=== PATIENT | female | born 1985 | race African-American/Black ===

== ENCOUNTER 2017-06-27 02:13 | Inpatient (IN) | payer SELFPAY ==
[2017-06-27] MEDS ORDERED: Sodium Chloride 0.9% 10 ML Syringe FLUSH PRN (02:52)
[2017-06-27] MEDS ORDERED: Oxytocin 10 Units/1 ML SDV ONE (02:55)
[2017-06-27] MEDS ORDERED: Lactated Ringers 1,000 ML IV SCH (03:00)
[2017-06-27] MEDS ORDERED: Oxytocin/Lactated Ringers 10 UNIT/1,000 ML BAG IV SCH (03:15)
[2017-06-27] MEDS ORDERED: Lidocaine 1% 50 ML MDV ONE (03:24)
--- NOTE | 2017-06-27 04:05 | PCM.LDHP ---
L&D History of Present Illness - General Date of Service: 06/27/17 Admit Problem/Dx: Patient Status Order with Admit Dx/Problem 06/27/17 02:59 Admission Status [Patient Status] [ADT] Routine Admission Diagnosis/Problem Admission Diagnosis/Problem Source of Information: Patient, Family History Limitations: Reports: No Limitations - History of Present Illness Introduction:: 32 yo with EDC of 07/04/17, now 39 weeks gestation presented to the hospital in labor. Her contractions had started at 9 pm on 06/26/17 and she presented to the hospital at 0225 and her membranes ruptured on arrival with clear fluid. She was having strong contractions and was 3 cm dilated on admission. She is blood type O positive, normal labs and normal 1 hour glucola. Her GBS test was negative. - Related Data Allergies/Adverse Reactions: Allergies Allergy/AdvReac Type Severity Reaction Status Date / Time No Known Allergies Allergy Verified 06/27/17 02:55 Social & Family History - Tobacco Use Smoking Status *Q: Never Smoker Tobacco Use Within Last Twelve Months: No - Tobacco Core Measures Tobacco Use/Smoking Within Last 30 Days: No - Alcohol Use Alcohol Use History: No - Recreational Drug Use Recreational Drug Use: No - Living Situation & Occupation Living situation: Reports: Occupation: Other Social History Comment: Stay at home Mom. H&P Review of Systems - Review of Systems: Review Of Systems: ROS reveals no pertinent complaints other than HPI. General: Reports: No Symptoms HEENT: Reports: No Symptoms Pulmonary: Reports: No Symptoms Cardiovascular: Reports: No Symptoms Gastrointestinal: Reports: No Symptoms Genitourinary: Reports: No Symptoms Musculoskeletal: Reports: No Symptoms Skin: Reports: No Symptoms Psychiatric: Reports: No Symptoms Neurological: Reports: No Symptoms Hematologic/Lymphatic: Reports: No Symptoms Immunologic: Reports: No Symptoms L&D Exam - Exam Exam: See Below - Vital Signs Weight: 86.183 kg - OB Specific Contraction Duration (sec): 80-90 secs Contraction Frequency (min): 2 to 3 Contraction Intensity: Moderate to Strong Movement: Active Heart Tones: Present Heart Tones per Min: 130 Heart Rate (FHR) Variability: Moderate (6-25 bmp) Presentation: Vertex - Green Score Green Score Cervix Position: Anterior Green Score Consistency: Soft Green Score Effacement: >80% Green Score Dilation: 3-4 cm Green Score Infant's Station: -1 ,0 Green Score Total: 11 - Exam General: Oriented, Moderate Distress HEENT: Conjunctiva Clear, Mucosa Moist & [place] Neck: Supple Lungs: Normal Respiratory Effort Cardiovascular: Regular Rate, Regular Rhythm GI/Abdominal Exam: No Distention Rectal Exam: Deferred Genitourinary: Normal external exam Skin: Warm, Dry, Intact Psychiatric: Alert, Normal Affect, Normal Mood - Problem List (1) Active labor at term SNOMED Code(s): 75518058 ICD Code: [id number] - Status: Acute Current Visit: Yes (2) SROM (spontaneous rupture of membranes) SNOMED Code(s): 295267196 ICD Code: [id number] - Status: Acute Current Visit: Yes Problem List Initiated/Reviewed/Updated: Yes Orders Last 24hrs: Active Orders 24 hr Category Date Time Status Admission Status [Patient Status] [ADT] Routine ADT 06/27/17 02:59 Active Activity as Tolerated [RC] PFP Care 06/27/17 02:52 Active Communication Order [RC] ASDIRECTED Care 06/27/17 02:52 Active Heart Tones [RC] ASDIRECTED Care 06/27/17 02:53 Active Notify Provider [RC] PFP Care 06/27/17 02:52 Active Notify Provider [RC] PRN Care 06/27/17 02:52 Active Peripheral IV Care [RC] . DIRECTED Care 06/27/17 02:53 Active Vital Signs [RC] PER UNIT ROUTINE Care 06/27/17 02:52 Active Lactated Ringers [Ringers, Lactated] 1,000 ml Med 06/27/17 03:00 Active IV ASDIRECTED Oxytocin/Lactated Ringers [Pitocin in LR 10 Units/1,000 Med 06/27/17 03:15 Active ML] 10 unit in 1,000 ml IV TITRATE Sodium Chloride 0.9% [Saline Flush] Med 06/27/17 02:52 Active 10 ml FLUSH ASDIRECTED PRN Electronic Heart Tones Ext w TOCO [WOMSER] Ot 06/27/17 02:52 Ordered Routine Electronic Heart Tones Internal [WOMSER] Per Unit Oth 06/27/17 02:52 Ordered Routine Peripheral IV Insertion Adult [OM.PC] Routine Ot 06/27/17 02:52 Ordered Resuscitation Status Routine Resus Stat 06/27/17 02:52 Ordered Medication Orders Lactated Ringer's (Ringers, Lactated) 1,000 mls @ 100 mls/hr IV ASDIRECTED NENITA Oxytocin/Lactated Ringer's (Pitocin In Lr 10 Units/1,000 Ml) 10 unit in 1,000 mls @ 3,000 mls/hr IV TITRATE NENITA; Protocol Sodium Chloride (Saline Flush) 10 ml FLUSH ASDIRECTED PRN PRN Reason: Keep Vein Open Assessment/Plan Comment:: 32 yo at 39 weeks gestation in active labor with SROM on admission. GBS negative. Expectant management of labor and anticipate .
--- NOTE | 2017-06-27 04:40 | PCM.DEL ---
L & D Note - General Info Date of Service: 06/27/17 Mother's Due Date: 07/04/17 - Delivery Note Labor: Spontaneous Delivery Outcome: Livebirth Infant Delivery Method: Spontaneous Vaginal Delivery-Single Delivery Mode: Spontaneous Presentation: Right Occiput Anterior (FREDDY) Nuchal Cord: None Prep: Povidone-Iodine (Betadine Anesthesia Type: None, Local Anesthetic: Lidocaine (Xylocaine) 1% Plain Amniotic Fluid Description: Clear Episiotomy Type: None Laceration: 1st Degree, Perineal Suture type: Vicryl Suture size: 3-0 Placenta: Intact, Spontaneous Cord: 3 Vessels Estimated Blood Loss: 100 Resuscitation Needed: No : Suctioned, Stimulated, Warmed Provider: Bianca Grimaldo Score 1 min: 8 Score 5 min: 9 Second Stage Interventions: Reports: Encouragement Given, Pushing Effectively, Pushing, Feet in Foot Rests Delivery Comments (Free Text/Narrative):: 32 yo at 39 weeks gestation presented in active labor at 0225 and had SROM on admit with clear fluids. She has had a normal course, following with Dr. Vogel. She started having contractions about 9 pm on 06/26/17 and when she presented to the hospital was having strong regular contractions about every 2 to 3 minutes. She was initially 3 cm dilated on admission and very shortly progressed to 6 cm dilated with vertex presentation. The nurses were unable to reach the banjo repair person Doctor covering for Dr. Vogel, so they called me and I came in for delivery. By the time that I arrived at about 0300, she was completely dilated. FHR was reactive with early decels noted with contractions. We got her set up and ready to push and at 0309 she started pushing. She pushed well with encouragement and the head was delivered from a FREDDY position over a 1st degree perineal laceration. There was no nuchal cord. The shoulder and then the rest of the baby delivered without difficulty. It was a baby boy and he cried at the perineum. He was dried and stimulated and the cord was clamped and cut and baby was placed on mother's abdomen. Pitocin IV infusion was started after delivery of the baby. The placenta delivered spontaneously with just gentle traction on the cord. It delivered at 0323. Placenta was intact and there were 3 vessels in the cord. The first degree perineal laceration was repaired in the usual manner with 3-0 vicryl. EBL was 100 ml. Uterus was firm and fundal massage was performed and expressed some blood clots. Baby was taken to warmer for measurements and weighted 7 lb 4 oz, 3300 grams. He was brought back to Mom and placed skin to skin on her chest and latched and was nursing withing 30 minutes of delivery. - General Info Date of Service: 06/27/17 - Patient Data Weight - Most Recent: 86.183 kg Med Orders - Current: Current Medications Lactated Ringer's (Ringers, Lactated) 1,000 mls @ 100 mls/hr IV ASDIRECTED NENITA Oxytocin/Lactated Ringer's (Pitocin In Lr 10 Units/1,000 Ml) 10 unit in 1,000 mls @ 3,000 mls/hr IV TITRATE NENITA; Protocol Sodium Chloride (Saline Flush) 10 ml FLUSH ASDIRECTED PRN PRN Reason: Keep Vein Open Discontinued Medications Lidocaine HCl (Xylocaine 1%) Confirm Administered Dose 50 ml .ROUTE .STK-MED ONE Stop: 06/27/17 03:25 Oxytocin (Pitocin) Confirm Administered Dose 10 unit .ROUTE .STK-MED ONE Stop: 06/27/17 02:56 - Problem List & Annotations (1) Active labor at term SNOMED Code(s): 83078086 Code(s): LPG5489 - Status: Acute Current Visit: Yes (2) SROM (spontaneous rupture of membranes) SNOMED Code(s): 091284349 Code(s): HVC3576 - Status: Acute Current Visit: Yes (3) Normal spontaneous vaginal delivery SNOMED Code(s): 85281725 Code(s): O80 - ENCOUNTER FOR FULL-TERM UNCOMPLICATED DELIVERY Status: Acute Current Visit: Yes (4) Perineal laceration during delivery SNOMED Code(s): 110884308 Code(s): O70.9 - PERINEAL LACERATION DURING DELIVERY, UNSPECIFIED Status: Acute Current Visit: Yes - Problem List Review Problem List Initiated/Reviewed/Updated: Yes - My Orders Last 24 Hours: My Active Orders 06/27/17 02:52 Activity as Tolerated [RC] PFP Communication Order [RC] ASDIRECTED Notify Provider [RC] PFP Notify Provider [RC] PRN Vital Signs [RC] PER UNIT ROUTINE Sodium Chloride 0.9% [Saline Flush] 10 ml FLUSH ASDIRECTED PRN Electronic Heart Tones Ext w TOCO [WOMSER] Routine Electronic Heart Tones Internal [WOMSER] Per Unit Routine Peripheral IV Insertion Adult [OM.PC] Routine Resuscitation Status Routine 06/27/17 02:53 Heart Tones [RC] ASDIRECTED Peripheral IV Care [RC] . DIRECTED 06/27/17 03:00 Lactated Ringers [Ringers, Lactated] 1,000 ml IV ASDIRECTED 06/27/17 03:15 Oxytocin/Lactated Ringers [Pitocin in LR 10 Units/1,000 ML] 10 unit in 1,000 ml IV TITRATE - Plan Plan:: 32 yo at 39 weeks gestation in active labor with SROM on admission. GBS negative. Expectant management of labor and anticipate .
[2017-06-27] MEDS ORDERED: Docusate Sodium 100 MG Cap PO PRN (04:44)
[2017-06-27] MEDS ORDERED: Aluminum Hydroxide/Magnesium Hydroxide/Simethicone Susp 30 ML Cup PO PRN (04:44)
[2017-06-27] MEDS ORDERED: Witch Hazel Medicated Pads 100/Jar TOP PRN (04:44)
[2017-06-27] MEDS ORDERED: Lanolin 100% Cream 7 GM Tube TOP PRN (04:44)
[2017-06-27] MEDS: Benzocaine/Menthol 20%-0.5% Spray 56 GM Canister TOP PRN (06:00)
[2017-06-27] MEDS: Ibuprofen 800 MG Tab PO PRN ×2 (06:00→13:29)
[2017-06-27] MEDS ORDERED: Acetaminophen 325 MG Tab PO PRN (15:42)
[2017-06-28] MEDS: Benzocaine/Menthol 20%-0.5% Spray 56 GM Canister TOP PRN (09:45)
--- NOTE | 2017-06-28 11:57 | PCM.DCSUM1 ---
Discharge Summary - Hospital Course Free Text/Narrative:: 32 yo at 39 weeks gestation presented in active labor at 0225 and had SROM on admit with clear fluids. She has had a normal course, following with Dr. Vogel. She started having contractions about 9 pm on 06/26/17 and when she presented to the hospital was having strong regular contractions about every 2 to 3 minutes. She was initially 3 cm dilated on admission and very shortly progressed to 6 cm dilated with vertex presentation. The nurses were unable to reach the applications support lead Doctor covering for Dr. Vogel, so they called me and I came in for delivery. By the time that I arrived at about 0300, she was completely dilated. FHR was reactive with early decels noted with contractions. We got her set up and ready to push and at 0309 she started pushing. She pushed well with encouragement and the head was delivered from a FREDDY position over a 1st degree perineal laceration. There was no nuchal cord. The shoulder and then the rest of the baby delivered without difficulty. It was a baby boy and he cried at the perineum. He was dried and stimulated and the cord was clamped and cut and baby was placed on mother's abdomen. Pitocin IV infusion was started after delivery of the baby. The placenta delivered spontaneously with just gentle traction on the cord. It delivered at 0323. Placenta was intact and there were 3 vessels in the cord. The first degree perineal laceration was repaired in the usual manner with 3-0 vicryl. EBL was 100 ml. Uterus was firm and fundal massage was performed and expressed some blood clots. Baby was taken to warmer for measurements and weighted 7 lb 4 oz, 3300 grams. He was brought back to Mom and placed skin to skin on her chest and latched and was nursing withing 30 minutes of delivery. Bria did well during her hospital stay with tolerating a regular diet and ambulating. She has been and supplementing with formula. She denies nipple pain. Her bleeding has been moderate and starting to slow down. She has been using ibuprofen and tylenol for pain relief. Discussed contraception and will plan to discuss again at her 6 week visit. She does complain of constipation so advised her to continue the colace and increase fluids and fiber in her diet. - Discharge Data Discharge Date: 06/28/17 Discharge Disposition: Home, Self-Care 01 Condition: Good - Discharge Diagnosis/Problem(s) (1) Normal spontaneous vaginal delivery SNOMED Code(s): 73553960 ICD Code: O80 - ENCOUNTER FOR FULL-TERM UNCOMPLICATED DELIVERY Status: Acute Priority: High Current Visit: Yes (2) Perineal laceration during delivery SNOMED Code(s): 819627032 ICD Code: O70.9 - PERINEAL LACERATION DURING DELIVERY, UNSPECIFIED Status: Acute Priority: Medium Current Visit: Yes Qualifiers: Perineal laceration degree: first degree Qualified Code(s): O70.0 - First degree perineal laceration during delivery (3) (infant) SNOMED Code(s): 774430566 ICD Code: Z78.9 - OTHER SPECIFIED HEALTH STATUS Status: Acute Current Visit: Yes - Patient Instructions Diet: Regular Diet as Tolerated, Drink 8-10+ Glasses/Day, No Alcoholic Beverages Activity: As Tolerated Driving: May Drive Today Showering/Bathing: May Shower Notify Provider of: Fever, Increased Pain, Swelling and Redness, Drainage, Nausea and/or Vomiting - Discharge Plan Home Medications: Home Meds Acetaminophen [Tylenol] 650 mg PO Q4H PRN tablet 06/28/17 [Rx] Benzocaine/Menthol [Dermoplast Pain Relief [place]] 1 applic TOP ASDIRECTED PRN canister 06/28/17 [Rx] Docusate Sodium [Colace] 100 mg PO BID PRN cap 06/28/17 [Rx] Ibuprofen [Motrin] 800 mg PO Q6H PRN tablet 06/28/17 [Rx] Lanolin [Lansinoh HPA] 1 applic TOP ASDIRECTED PRN tube 06/28/17 [Rx] Witch Angelica [Tucks] 1 pad TOP ASDIRECTED PRN pad 06/28/17 [Rx] Patient Handouts: Home Care Instructions for Mom, Vaginal Delivery, Care After , Care of a Perineal Tear Referrals: Bianca Grimaldo MD [Primary Care Provider] - - Discharge Summary/Plan Comment DC Time >30 min.: No - General Info Date of Service: 06/28/17 Functional Status: Reports: Pain Controlled, Tolerating Diet, Ambulating, Urinating - Review of Systems General: Reports: No Symptoms HEENT: Reports: No Symptoms Pulmonary: Reports: No Symptoms Cardiovascular: Reports: No Symptoms Gastrointestinal: Reports: Constipation Genitourinary: Reports: No Symptoms Musculoskeletal: Reports: No Symptoms Skin: Reports: No Symptoms Neurological: Reports: No Symptoms Psychiatric: Reports: No Symptoms - Patient Data Vitals - Most Recent: Last Vital Signs Temp 36.9 C 06/27/17 20:15 Pulse 89 06/28/17 03:19 Resp 16 06/28/17 03:19 BP 116/76 06/28/17 03:19 Pulse Ox 88 L 06/28/17 03:19 Weight - Most Recent: 86.183 kg I&O - Last 24 hours: Intake & Output 06/27/17 06/28/17 06/28/17 22:59 06:59 14:59 Intake Total 360 120 Balance 360 120 Med Orders - Current: Current Medications Acetaminophen (Tylenol) 650 mg PO Q4H PRN PRN Reason: Pain Last Admin: 06/27/17 20:23 Dose: 650 mg Al Hydroxide/Mg Hydroxide (Mag-Al Plus) 30 ml PO Q8H PRN PRN Reason: Heartburn Benzocaine/Menthol (Dermoplast Pain Relief [place]) 0 gm TOP ASDIRECTED PRN PRN Reason: Perineal Comfort Measure Last Admin: 06/28/17 09:45 Dose: 1 canister Docusate Sodium (Colace) 100 mg PO BID PRN PRN Reason: Constipation Last Admin: 06/27/17 13:37 Dose: 100 mg Emollient Ointment (Lansinoh Hpa) 0 gm TOP ASDIRECTED PRN PRN Reason: Sore Nipples Lactated Ringer's (Ringers, Lactated) 1,000 mls @ 100 mls/hr IV ASDIRECTED NENITA Last Admin: 06/27/17 03:19 Dose: 500 mls/hr Oxytocin/Lactated Ringer's (Pitocin In Lr 10 Units/1,000 Ml) 10 unit in 1,000 mls @ 3,000 mls/hr IV TITRATE NENITA; Protocol Ibuprofen (Motrin) 800 mg PO Q6H PRN PRN Reason: Mild pain or fever Last Admin: 06/27/17 13:29 Dose: 800 mg Sodium Chloride (Saline Flush) 10 ml FLUSH ASDIRECTED PRN PRN Reason: Keep Vein Open Witch Angelica (Tucks) 1 pad TOP ASDIRECTED PRN PRN Reason: Hemorrhoid pain Last Admin: 06/27/17 06:00 Dose: 1 container Discontinued Medications Lidocaine HCl (Xylocaine 1%) Confirm Administered Dose 50 ml .ROUTE .STK-MED ONE Stop: 06/27/17 03:25 Last Admin: 06/27/17 03:40 Dose: 50 ml Oxytocin (Pitocin) Confirm Administered Dose 10 unit .ROUTE .STK-MED ONE Stop: 06/27/17 02:56 Last Admin: 06/27/17 07:49 Dose: Not Given - Exam General: Reports: Alert HEENT: Reports: Pupils Equal, Pupils Reactive, EOMI, Mucous Membr. Moist/[place] Neck: Reports: Supple Lungs: Reports: Clear to Auscultation, Normal Respiratory Effort Cardiovascular: Reports: Regular Rate, Regular Rhythm GI/Abdominal Exam: Normal Bowel Sounds, Soft, Non-Tender, No Organomegaly, No Distention, No Abnormal Bruit, No Mass, Pelvis Stable (Female) Exam: Normal External Exam, Other (Fundus firm and at the umbilicus) Rectal (Female) Exam: Deferred Back Exam: Reports: Normal Inspection, Full Range of Motion Extremities: Normal Inspection, Normal Range of Motion, Non-Tender, No Pedal Edema, Normal Capillary Refill Skin: Reports: Warm, Dry, Intact Wound/Incisions: Reports: Healing Well Neurological: Reports: No New Focal Deficit Psy/Mental Status: Reports: Alert, Normal Affect, Normal Mood
== END 2017-06-28 14:00 | disposition home or self-care (01) | DRG 775 ==
LOC: JD.OBCHECK 02:13 → JD.OB 02:17 → JD.OBCHECK 02:59 → JD.OB 03:00 → OBSVTOIN 03:18 → JD.OB 03:19
PROVIDERS: ADMIT Family Medicine; ATTEND Family Medicine
PROC: 10E0XZZ Delivery of Products of Conception, External Approach (ICD-10-PCS; principal; 2017-06-27)
PROC: 0HQ9XZZ Repair Perineum Skin, External Approach (ICD-10-PCS; 2017-06-27)
DX: O70.0 First degree perineal laceration during delivery (principal); Z37.0 Single live birth; Z3A.39 39 weeks gestation of pregnancy; O99.63 Diseases of the digestive system complicating the puerperium; K59.00 Constipation, unspecified
CPT/HCPCS: 59025; 59300; 59409; 82962; A9270-GY; J7120